=== PATIENT | male | born 1950 | race Caucasian/White ===

== ENCOUNTER 2025-02-25 16:24 | Inpatient (IN) | payer MEDICARE ==
[~2025-02-25] VITALS: Ht 172.7 cm; Wt 56.5 kg
[2025-02-25] MEDS ORDERED: INSU100I26 SQ (16:47)
[2025-02-25] MEDS ORDERED: FAMO20TA8 PO (16:47)
[2025-02-25] MEDS ORDERED: MAGN400O6 PO (16:47)
[2025-02-25] MEDS ORDERED: BENZ1TAB PO (16:47)
[2025-02-25] MEDS ORDERED: ACET-2154 PO (16:47)
[2025-02-25] MEDS ORDERED: NA P133E RC (16:47)
[2025-02-25] MEDS ORDERED: BISA10SU61 RC (16:47)
[2025-02-25] MEDS ORDERED: MICONAZOLE POWDER (16:47)
[2025-02-25] MEDS ORDERED: AMLO2.5T4 PO (16:47)
[2025-02-25] MEDS ORDERED: HYDR28OI2 TP (16:47)
[2025-02-25] MEDS ORDERED: HALO5TAB PO (16:47)
[2025-02-25] MEDS ORDERED: POLY17PO4 PO (16:47)
[2025-02-25 17:07] LABS: PLATELET COUNT (AUTO) 400 K/uL (152-348); RED BLOOD CELL COUNT(AUTO) 4.31 MIL/uL (4.06-5.63); RED CELL DISTRIBUTION WIDTH 13.9 % (12.1-16.2); WHITE BLOOD COUNT (AUTO) 15.4 K/uL (3.6-10.2)
[2025-02-25 17:15] LABS: CREATININE 2.5 mg/dL (0.6-1.3); SODIUM SERUM 139 mmol/L (136-145); UREA NITROGEN, BLOOD 63 mg/dL (7-18)
[2025-02-25 17:16] LABS: ETHANOL < 3 MG/DL (0-10)
[2025-02-25 17:22] LABS: ASPARTATE AMINOTRANSFERASE 18 U/L (15-37); TOTAL PROTEIN, SERUM 7.9 g/dL (6.4-8.2)
[2025-02-25] MEDS ORDERED: HALOPERIDOL LACTATE 5 MG/1 ML VIAL ONE (17:32)
[2025-02-25] MEDS ORDERED: diphenhydrAMINE 50 MG/1 ML VIAL ONE (17:32)
[2025-02-25] MEDS ORDERED: LORAZEPAM 2 MG/1 ML VIAL ONE (17:32)
[2025-02-25] MEDS: LORAZEPAM 2 MG/1 ML VIAL IM ONE (17:38)
[2025-02-25] MEDS: diphenhydrAMINE 50 MG/1 ML VIAL IM ONE (17:38)
[2025-02-25] MEDS: HALOPERIDOL LACTATE 5 MG/1 ML VIAL IM ONE (17:38)
[2025-02-25 17:43] LABS: *BILIRUBIN,URIN 1+ (NEGATIVE); *CLARITY,URINE CLEAR (CLEAR); *COLOR,URINE YELLOW (YELLOW); *KETONES,URINE TRACE (NEGATIVE); *PROTEIN,URINE 1+ (NEGATIVE); *UROBILINOGEN,URINE 0.2 E.U./dl (NORMAL); LEUKOCYTE ESTERASE ,URINE NEGATIVE (NEGATIVE); NITRITE, URINE NEGATIVE (NEGATIVE); UGLUCOSE TRACE (NEGATIVE)
[2025-02-25 17:46] LABS: *BLOOD, URINE TRACE (NEGATIVE)
[2025-02-25 17:51] LABS: SQUAMOUS EPITHELIAL CELL,UR FEW /HPF (NONE SEEN)
[2025-02-25 17:54] LABS: *AMPHETAMINE, URINE NEGATIVE (NEGATIVE); *BARBITURATE, URINE NEGATIVE (NEGATIVE); *BENZODIAZEPINE, URINE NEGATIVE (NEGATIVE); *CANNABINOID, URINE NEGATIVE (NEGATIVE); *COCCAINE, URINE NEGATIVE (NEGATIVE); *OPIATE, URINE NEGATIVE (NEGATIVE); *PHENCYCLIDINE SCREEN,URINE NEGATIVE (NEGATIVE); FENTANYL, URINE NEGATIVE (NEGATIVE)
[2025-02-25 18:06] VITALS: BP 123/70
[2025-02-25 20:00] VITALS: BP 132/58; TEMP 96.5; O2SAT 97
[2025-02-25] MEDS ORDERED: REMEDY ESSENTIAL ZINC PASTE 113 GM TP PRN (23:15)
[2025-02-25] MEDS ORDERED: DEXTROSE 50% 50 ML DISP.SYRIN IV PRN (23:15)
[2025-02-26] MEDS: BENZTROPINE MESYLATE 1 MG TABLET PO SCH (00:23)
[2025-02-26 05:14] LABS: PLATELET COUNT (AUTO) 365 K/uL (152-348); RED BLOOD CELL COUNT(AUTO) 4.02 MIL/uL (4.06-5.63); RED CELL DISTRIBUTION WIDTH 14.1 % (12.1-16.2); WHITE BLOOD COUNT (AUTO) 13.2 K/uL (3.6-10.2)
[2025-02-26 05:25] LABS: CREATININE 2.3 mg/dL (0.6-1.3); SODIUM SERUM 142 mmol/L (136-145); UREA NITROGEN, BLOOD 65 mg/dL (7-18)
[2025-02-26 06:00] VITALS: BP 131/67; TEMP 96.6; O2SAT 97
[2025-02-26] MEDS: BLOOD SUGAR DIAGNOSTIC 1 EACH STRIP VI SCH (07:10)
[2025-02-26] MEDS: INSULIN REGULAR, HUMAN 1000 UNIT/10 ML VIAL SQ PRN (07:35)
[2025-02-26] MEDS: AMLODIPINE 2.5 MG TABLET PO SCH (08:22)
[2025-02-26] MEDS: FAMOTIDINE 20 MG TABLET PO SCH (08:22)
[2025-02-26 12:00] VITALS: BP 129/59; TEMP 98.2; O2SAT 97
[2025-02-26 16:08] VITALS: BP 140/60; TEMP 98.2; O2SAT 98
[2025-02-26] MEDS: ACETAMINOPHEN 325 MG TABLET PO PRN (21:52)
[2025-02-26 22:24] VITALS: BP 130/92; TEMP 97.7; O2SAT 99
[2025-02-27 05:22] VITALS: BP 140/79; TEMP 98; O2SAT 95
[2025-02-27 07:30] VITALS: BP 106/57; TEMP 97.8; O2SAT 97
[2025-02-27 07:31] LABS: PLATELET COUNT (AUTO) 366 K/uL (152-348); RED BLOOD CELL COUNT(AUTO) 3.98 MIL/uL (4.06-5.63); RED CELL DISTRIBUTION WIDTH 13.8 % (12.1-16.2); WHITE BLOOD COUNT (AUTO) 12.1 K/uL (3.6-10.2)
[2025-02-27 07:45] LABS: CREATININE 1.9 mg/dL (0.6-1.3); SODIUM SERUM 140 mmol/L (136-145); UREA NITROGEN, BLOOD 53 mg/dL (7-18)
[2025-02-27] MEDS: IV NS 1000 ML 1,000 ML IV PRN (10:17)
[2025-02-27 12:28] VITALS: BP 133/49; TEMP 98; O2SAT 99
[2025-02-27 14:39] LABS: *BILIRUBIN,URIN NEGATIVE (NEGATIVE); *BLOOD, URINE 2+ (NEGATIVE); *CLARITY,URINE CLEAR (CLEAR); *COLOR,URINE YELLOW (YELLOW); *KETONES,URINE NEGATIVE (NEGATIVE); *PROTEIN,URINE 2+ (NEGATIVE); *UROBILINOGEN,URINE 0.2 E.U./dl (NORMAL); LEUKOCYTE ESTERASE ,URINE NEGATIVE (NEGATIVE); NITRITE, URINE NEGATIVE (NEGATIVE); UGLUCOSE TRACE (NEGATIVE)
[2025-02-27 14:46] LABS: *CREATININE,URINE 96.3 mg/dL (30-125); *SODIUM RNDM,URINE 24.0 mmol/L (40-220)
[2025-02-27 14:51] LABS: SQUAMOUS EPITHELIAL CELL,UR FEW /HPF (NONE SEEN)
[2025-02-27] MEDS: GLUCERNA SHAKE 237 ML CAN PO SCH (17:36)
[2025-02-27 18:30] VITALS: BP 139/62; TEMP 97.4; O2SAT 99
[2025-02-27] MEDS: BISACODYL 10 MG SUPP.RECT RC PRN (18:37)
[2025-02-27 20:00] VITALS: BP 146/57; TEMP 98.6; O2SAT 100
[2025-02-27] MEDS: QUETIAPINE FUMARATE 25 MG TABLET PO SCH (21:03)
[2025-02-27 21:54] VITALS: BP 146/57; TEMP 97.6; O2SAT 100
[2025-02-28] MEDS: ONDANSETRON 4 MG/2 ML VIAL IV PRN (04:24)
[2025-02-28 06:09] VITALS: BP 130/70; TEMP 99.8; O2SAT 100
[2025-02-28 06:29] LABS: PLATELET COUNT (AUTO) 370 K/uL (152-348); RED BLOOD CELL COUNT(AUTO) 4.23 MIL/uL (4.06-5.63); RED CELL DISTRIBUTION WIDTH 14.0 % (12.1-16.2); WHITE BLOOD COUNT (AUTO) 29.2 K/uL (3.6-10.2)
[2025-02-28 06:47] LABS: ASPARTATE AMINOTRANSFERASE 19 U/L (15-37); CREATINE KINASE, TOTAL 122 U/L (39-308); CREATININE 1.7 mg/dL (0.6-1.3); SODIUM SERUM 140 mmol/L (136-145); TOTAL PROTEIN, SERUM 7.2 g/dL (6.4-8.2); UREA NITROGEN, BLOOD 40 mg/dL (7-18)
[2025-02-28 07:46] LABS: LYMPHOCYTES % (MANUAL) 2 % (20-40); MONOCYTES % (MANUAL) 3 % (2-10); NEUTROPHILS % (MANUAL) 94 % (42-75)
[2025-02-28 07:47] LABS: PLATELET ESTIMATE INCREASED
[2025-02-28] MEDS: PANTOPRAZOLE SODIUM 40 MG VIAL IV SCH (08:29)
[2025-02-28 10:52] VITALS: BP 100/43; TEMP 99.8; O2SAT 90
[2025-02-28 15:28] VITALS: BP 116/62; TEMP 98.5; O2SAT 96
[2025-02-28 22:38] VITALS: BP 103/57; TEMP 98.1; O2SAT 99
[2025-03-01 06:26] LABS: PLATELET COUNT (AUTO) 250 K/uL (152-348); RED BLOOD CELL COUNT(AUTO) 3.55 MIL/uL (4.06-5.63); RED CELL DISTRIBUTION WIDTH 14.2 % (12.1-16.2); WHITE BLOOD COUNT (AUTO) 19.0 K/uL (3.6-10.2)
[2025-03-01 06:45] LABS: CREATININE 1.7 mg/dL (0.6-1.3); SODIUM SERUM 143 mmol/L (136-145); UREA NITROGEN, BLOOD 41 mg/dL (7-18)
[2025-03-01 06:46] VITALS: BP 93/54; TEMP 100.6; TEMP 99.3; O2SAT 97
[2025-03-01 10:07] VITALS: BP 87/53; TEMP 99.1; O2SAT 100
[2025-03-01 13:04] LABS: *BILIRUBIN,URIN NEGATIVE (NEGATIVE); *BLOOD, URINE 1+ (NEGATIVE); *CLARITY,URINE CLEAR (CLEAR); *COLOR,URINE YELLOW (YELLOW); *KETONES,URINE NEGATIVE (NEGATIVE); *PROTEIN,URINE 1+ (NEGATIVE); *UROBILINOGEN,URINE 0.2 E.U./dl (NORMAL); LEUKOCYTE ESTERASE ,URINE NEGATIVE (NEGATIVE); NITRITE, URINE NEGATIVE (NEGATIVE); UGLUCOSE NEGATIVE (NEGATIVE)
[2025-03-01 13:08] LABS: SQUAMOUS EPITHELIAL CELL,UR FEW /HPF (NONE SEEN)
[2025-03-01 13:09] LABS: PTH, INTACT <6 pg/mL (15-65)
[2025-03-01 16:00] VITALS: BP 126/65; TEMP 98.9; O2SAT 98
[2025-03-01 19:45] VITALS: BP 112/66; TEMP 98.6; O2SAT 96
[2025-03-02 05:52] VITALS: BP 115/70; TEMP 98.4; O2SAT 97
[2025-03-02 06:14] LABS: PLATELET COUNT (AUTO) 229 K/uL (152-348); RED BLOOD CELL COUNT(AUTO) 3.78 MIL/uL (4.06-5.63); RED CELL DISTRIBUTION WIDTH 14.6 % (12.1-16.2); WHITE BLOOD COUNT (AUTO) 10.7 K/uL (3.6-10.2)
[2025-03-02 06:30] LABS: ASPARTATE AMINOTRANSFERASE 25 U/L (15-37); CREATININE 1.3 mg/dL (0.6-1.3); SODIUM SERUM 143 mmol/L (136-145); TOTAL PROTEIN, SERUM 6.4 g/dL (6.4-8.2); UREA NITROGEN, BLOOD 46 mg/dL (7-18)
[2025-03-02 07:10] LABS: A/G RATIO 0.7 (0.7-1.7); BETA GLOBULIN 1.3 g/dL (0.7-1.3); GLOBULIN, TOTAL 3.8 g/dL (2.2-3.9); M-SPIKE Not Observed g/dL (Not Observed); PROTEIN, TOTAL 6.5 g/dL (6.0-8.5)
[2025-03-02 08:31] VITALS: BP 106/67; TEMP 97.8; O2SAT 94
[2025-03-02 09:12] LABS: NEUTROPHILS % (MANUAL) 0 % (42-75)
[2025-03-02] MEDS ORDERED: NUT.237L36 PO (10:55)
[2025-03-02] MEDS ORDERED: INSU100V28 SQ (10:55)
[2025-03-02] MEDS ORDERED: QUET25TA36 PO (10:55)
[2025-03-02 12:00] VITALS: BP 110/60; TEMP 98; O2SAT 95
[2025-03-02 16:27] VITALS: BP 113/50; TEMP 97.6; O2SAT 96
[2025-03-02] MEDS ORDERED: QUETIAPINE FUMARATE 25 MG TABLET PO SCH (21:00)
== END 2025-03-02 17:30 | DRG 82 ==
LOC: ER 16:30 → MEDSURG3 20:33
PROVIDERS: ADMIT Nurse Practitioner Acute Care; ATTEND Nurse Practitioner Acute Care
DX: S06.5XAA Traumatic subdural hemorrhage with loss of consciousness status unknown, initial encounter (principal); N17.0 Acute kidney failure with tubular necrosis; E44.1 Mild protein-calorie malnutrition; J84.10 Pulmonary fibrosis, unspecified; F29 Unspecified psychosis not due to a substance or known physiological condition; E88.09 Other disorders of plasma-protein metabolism, not elsewhere classified; E11.42 Type 2 diabetes mellitus with diabetic polyneuropathy; D72.829 Elevated white blood cell count, unspecified; J43.0 Unilateral pulmonary emphysema [MacLeod's syndrome]; I11.9 Hypertensive heart disease without heart failure; V49.9XXA Car occupant (driver) (passenger) injured in unspecified traffic accident, initial encounter; Y92.410 Unspecified street and highway as the place of occurrence of the external cause; R40.2242 Coma scale, best verbal response, confused conversation, at arrival to emergency department; R40.2362 Coma scale, best motor response, obeys commands, at arrival to emergency department; R40.2142 Coma scale, eyes open, spontaneous, at arrival to emergency department; Z87.820 Personal history of traumatic brain injury; E78.5 Hyperlipidemia, unspecified; K21.9 Gastro-esophageal reflux disease without esophagitis; Z86.61 Personal history of infections of the central nervous system; R29.6 Repeated falls; M48.02 Spinal stenosis, cervical region; Z98.890 Other specified postprocedural states; M15.9 Polyosteoarthritis, unspecified; R26.2 Difficulty in walking, not elsewhere classified
CPT/HCPCS: 36415; 70030-TC; 70450; 71045; 76770; 83735; 83921; 83970; 84100; 84155; 84165; 84300; 84443; 84484; 85025; 87040; 87077; 87086; A4663; A6213; C1758; G0378; G0480; J0696; J1200; J1630; J1815; J2060; J2405; J2470; J7040